=== PATIENT | female | born 2005 ===

== ENCOUNTER → 2025-06-14 23:59 | Outpatient (BNV) | payer OTHER, SELFPAY ==
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
== END ==
PROVIDERS: PCP Nurse Practitioner Family; Visit Provider Nurse Practitioner Family
DX: F51.05 Insomnia due to other mental disorder (principal); F41.8 Other specified anxiety disorders; F41.9 Anxiety disorder, unspecified; F32.A Depression, unspecified; Z87.898 Personal history of other specified conditions; Z30.09 Encounter for other general counseling and advice on contraception; Z59.819 Housing instability, housed unspecified; J45.20 Mild intermittent asthma, uncomplicated; Z71.89 Other specified counseling
CPT/HCPCS: 96127; 99205